=== PATIENT | male | born 1955 | race African-American/Black ===

== ENCOUNTER 2019-08-10 07:53 | Emergency (ER) | payer OTHER ==
[~2019-08-10] VITALS: Ht 180.3 cm; Wt 204.1 kg
[~2019-08-10 07:53] MED LIST: ACET325T9 PO; ALLO100T PO; ASPI-630 PO; ATOR10TA60 PO; CHOL200027 PO; DICL100G18 TP; EZET10TA20 PO; FAMO-63 PO; FAMO20TA5 PO; FERR325T14 PO; GLIM1TAB PO; HEPA1000 SUBCUT; HEPA1DIS11 SUBCUT; HYDR-3164 PO; INSU100I13 SQ; INSU100I17 SQ; INSU100I27 SQ; INSU200I SQ; LIDO700A4 TP; LINA5TAB PO; LISI1TAB20 PO; MINE120C TP; OXYC20TA34 PO; POTA10TA12 PO; PRAV80TA2 PO; SODI650T PO; SULF1TAB24 PO; TOPI25TA7 PO
--- NOTE | 2019-08-10 09:03 | RAD ---
CHEST AP ONLY INDICATION: Dyspnea. Fall. COMPARISON STUDY: 10/16/2016. FINDINGS: Exclusion of the right base Lungs: Low lung volume. Asymmetric elevation of the right hemidiaphragm. No pulmonary mass or consolidation. The tracheobronchial tree and hilar structures are normal. Pleura: No pleural effusion or pneumothorax. Heart and Mediastinum: Stable cardiomediastinal silhouette and great vessels. Bones and Soft Tissues: No displaced rib fractures are seen. IMPRESSION: No focal airspace disease. Electronically signed by: Erwin Humphreys MD (08/10/2019 9:00 AM) [facility]
--- NOTE | 2019-08-10 09:04 | RAD ---
AP view of the pelvis and two-view study right hip Clinical indications: Fall yesterday. Right hip pain. FINDINGS: No acute fracture or dislocation or lytic process is evident. No diastases of the symphysis pubis or either SI joint is seen. There is mild symmetrical degenerative joint space narrowing of both hip joints. IMPRESSION: No acute osseous abnormality. Electronically signed by: Daryl Elaine MD (08/10/2019 9:01 AM) [facility]
--- NOTE | 2019-08-10 09:55 | PHYS DOC ---
Past Medical History Past Medical History: Anemia, Diabetes-Type II, GERD, High Cholesterol, H ypertension Additional Past Medical Histor: ANGINA PVD SLEEP APNEA OBESITY GOUT CKD STAGE 3 Past Surgical History: No Surgical History Additional Past Surgical Histo: laser surgery on veins in bilat legs Alcohol Use: None Drug Use: None Adult General Chief Complaint Chief Complaint: HIP PAIN HPI HPI Patient is a 64 year old male who presents via EMS with complaining of right hip injury. Patient has morbid obesity and is a resident of senior living with wheelchair bound condition and fell yesterday from shower chair and injured his right hip. Patient was able to move around but he continued to have pain in his right hip and tailbone area and rated his pain 2/10. Patient also states he diagnosed with pneumonia 1 month ago and still has some cough without fever and chills and chest pain. Review of Systems Review of Systems Constitutional: Denies fever or chills [] Eyes: Denies change in visual acuity, redness, or eye pain [] HENT: Denies nasal congestion or sore throat [] Respiratory: Denies shortness of breath, reports cough [] Cardiovascular: No additional information not addressed in HPI [] GI: Denies abdominal pain, nausea, vomiting, bloody stools or diarrhea [] : Denies dysuria or hematuria [] Musculoskeletal:, Reports back pain or joint pain Integument: Denies rash or skin lesions [] Neurologic: Denies headache, focal weakness or sensory changes [] Endocrine: Denies polyuria or polydipsia [] All other systems were reviewed and found to be within normal limits, except as documented in this note. Allergies Allergies Allergies Coded Allergies Type Severity Reaction Last Updated Verified No Known Drug Allergies 08/09/16 No Physical Exam Physical Exam Constitutional: Well nourished, no acute distress, non-toxic appearance, morbidly obese . [] HENT: Normocephalic, atraumatic. Eyes: PERRLA, EOMI, conjunctiva normal, no discharge. [] Neck: Normal range of motion, no tenderness, supple, no stridor. [] Cardiovascular:Heart rate regular rhythm, no murmur [] Lungs & Thorax: Bilateral breath sounds clear to auscultation [] Abdomen: Bowel sounds normal, soft, no tenderness, no masses, no pulsatile masses. [] Skin: Warm, dry, no erythema, no rash. [] Back: No tenderness, no CVA tenderness. [] Extremities: No tenderness, no cyanosis, no clubbing, ROM intact. [] Neurologic: Alert and oriented X 3, normal motor function, normal sensory function, no focal deficits noted. [] Psychologic: Affect normal, judgement normal, mood normal. [] Current Patient Data Vital Signs Vital Signs Date Time Temp Pulse Resp B/P (MAP) Pulse Ox O2 Delivery O2 Flow Rate FiO2 08/10/19 11:51 144/70 (94) 08/10/19 10:51 92 93 Room Air 08/10/19 08:08 97.8 20 97.8 EKG EKG [] Radiology/Procedures Radiology/Procedures [][address] [address] IMAGING REPORT Signed PATIENT: LEON RAVI ACCOUNT: [id number] : 1955 LOCATION: ER AGE: 64 SEX: M EXAM STATUS: REG ER ORD. PHYSICIAN: ERICK PEDRAZA MD REASON: fall, pt fell yesterday, short of air PROCEDURE: CHEST AP ONLY CHEST AP ONLY INDICATION: Dyspnea. Fall. COMPARISON STUDY: 10/16/2016. FINDINGS: Exclusion of the right base Lungs: Low lung volume. Asymmetric elevation of the right hemidiaphragm. No pulmonary mass or consolidation. The tracheobronchial tree and hilar structures are normal. Pleura: No pleural effusion or pneumothorax. Heart and Mediastinum: Stable cardiomediastinal silhouette and great vessels. Bones and Soft Tissues: No displaced rib fractures are seen. IMPRESSION: No focal airspace disease. Electronically signed by: Guerrero Humphreys MD (08/10/2019 9:00 AM) [facility] DICTATED and SIGNED BY: GUERRERO HUMPHREYS MD DATE: 08/10/[address] [id number] IMAGING REPORT Signed PATIENT: LEON RAVI ACCOUNT: [id number] : 1955 LOCATION: ER AGE: 64 SEX: M EXAM STATUS: REG ER ORD. PHYSICIAN: ERICK PEDRAZA MD REASON: fall, pt fell yesterday , tailbone pain PROCEDURE: SACRUM & COCCYX 3V AP view of the pelvis and two-view study right hip Clinical indications: Fall yesterday. Right hip pain. FINDINGS: No acute fracture or dislocation or lytic process is evident. No diastases of the symphysis pubis or either SI joint is seen. There is mild symmetrical degenerative joint space narrowing of both hip joints. IMPRESSION: No acute osseous abnormality. Electronically signed by: Shantel Elaine MD (08/10/2019 9:01 AM) [facility] DICTATED and SIGNED BY: SHANTEL ELAINE MD DATE: 08/10/19900 [facility] [address] [place], [place] [id number] IMAGING REPORT Signed PATIENT: LEON RAVI ACCOUNT: [id number] : 1955 LOCATION: ER AGE: 64 SEX: M EXAM STATUS: REG ER ORD. PHYSICIAN: ERICK PEDRAZA MD REASON: fall, pt fell yesterday,rt hip pain PROCEDURE: HIP RIGHT 2V WITH PELVIS AP view of the pelvis and two-view study right hip Clinical indications: Fall yesterday. Right hip pain. FINDINGS: No acute fracture or dislocation or lytic process is evident. No diastases of the symphysis pubis or either SI joint is seen. There is mild symmetrical degenerative joint space narrowing of both hip joints. IMPRESSION: No acute osseous abnormality. Electronically signed by: Shantel Elaine MD (08/10/2019 9:01 AM) [facility] DICTATED and SIGNED BY: SHANTEL ELAINE MD DATE: 08/10/19900 Course & Med Decision Making Course & Med Decision Making Pertinent Imaging studies reviewed. (See chart for details) Evaluation of patient is a 64-year-old male patient resident of senior living with a fall from chair yesterday and complaining of pain and tailbone. Patient was morbidly obese without focal tenderness and x-ray of right hip and sacral/coccyx and chest x-ray was unremarkable. Patient was advised to follow-up with his senior living physician as needed. I've spoken with the patient and/or caregivers. I've explained the patient's condition, diagnosis and treatment plan based on information available to me at this time. I've answered the patient's and/or caregivers questions and addressed any concerns. The patient and/or caregivers have a good understanding the patient's diagnosis, condition and treatment plan as can be expected at this point. Vital signs have been stabilized. The patient's condition is stable for discharge from the emergency department. The patient will pursue further outpatient evaluation with her primary care provider or other designated consulting physician as outlined in the discharge instructions. Patient and/or caregivers are agreeable to this plan of care and follow-up instructions have been explained in detail. The patient and/or caregivers have received these instructions in written format and expressed unde rstanding of these discharge instructions. The patient and her caregivers are aware that if any significant change in condition or worsening of symptoms should prompt him to immediately return to this of the closest emergency department. If an emergent department is not readily available I would encourage him to call 911. [place] Disclaimer Dragon Disclaimer This electronic medical record was generated, in whole or in part, using a voice recognition dictation system. Departure Departure Impression: Primary Impression: Strain of right hip Additional Impressions: Coccyx sprain Morbid obesity with BMI of 60.0-69.9, adult Fall at senior living Chronic cough Disposition: 01 HOME, SELF-CARE (senior living at 0 952) Condition: STABLE Referrals: [facility] (PCP) Patient Instructions: Fall Prevention and Home Safety, Hip Injury, Tailbone Injury Additional Instructions: Continue current medication Follow-up with your primary care physician in 3-5 days Return to ER if not getting better Problem Qualifiers Primary Impression: Strain of right hip Encounter type: initial encounter Qualified Codes: S76.011A - Strain of muscle, fascia and tendon of right hip, initial encounter Additional Impressions: Coccyx sprain Encounter type: initial encounter Qualified Codes: S33.8XXA - Sprain of other parts of lumbar spine and pelvis, initial encounter Fall at senior living Encounter type: subsequent encounter Qualified Codes: W19.XXXD - Unspecified fall, subsequent encounter; Y92.129 - Unspecified place in senior living as the place of occurrence of the external cause ERICK PEDRAZA MD Aug 10, 2019 09:55
[2019-08-10 11:51] VITALS: BP 144/70
== END 2019-08-10 11:52 | disposition home or self-care (01) ==
LOC: ER 07:53
DX: S76.011A Strain of muscle, fascia and tendon of right hip, initial encounter (principal); S33.8XXA Sprain of other parts of lumbar spine and pelvis, initial encounter; R05 Cough; R07.89 Other chest pain; E66.01 Morbid (severe) obesity due to excess calories; Z68.44 Body mass index [BMI] 60.0-69.9, adult; K21.9 Gastro-esophageal reflux disease without esophagitis; E78.00 Pure hypercholesterolemia, unspecified; I12.9 Hypertensive chronic kidney disease with stage 1 through stage 4 chronic kidney disease, or unspecified chronic kidney disease; E11.22 Type 2 diabetes mellitus with diabetic chronic kidney disease; N18.3 Chronic kidney disease, stage 3 (moderate); M10.9 Gout, unspecified; W07.XXXA Fall from chair, initial encounter; Y93.89 Activity, other specified; Y92.128 Other place in nursing home as the place of occurrence of the external cause; Y99.8 Other external cause status
CPT/HCPCS: 71045; 72220; 73502; 99284